=== PATIENT | female | born 1965 | race Caucasian/White ===

== ENCOUNTER 2024-04-27 07:26 | Emergency (ER) | payer BC ==
[2024-04-27] MEDS: Ketorolac 30 MG/ML SDV IM ONE (08:24)
[2024-04-27] MEDS: Cyclobenzaprine 10 MG Tab PO ONE (08:25)
== END 2024-04-27 09:59 | disposition home or self-care (01) ==
LOC: JP.ED 07:26
DX: M54.50 Low back pain, unspecified (principal); Z88.0 Allergy status to penicillin
CPT/HCPCS: 96372; 99283; A9270; J1885

== ENCOUNTER 2025-07-09 08:18 | Emergency (ER) | payer BC, MEDICAID ==
[2025-07-09 08:48] LABS: BASOPHILS ABSOLUTE AUTO 0.03 K/uL (0.00-0.10); BASOPHILS PERCENT AUTO 0.6 % (0.1-1.3); EOSINOPHILS ABSOLUTE AUTO 0.12 K/uL (0.00-0.40); EOSINOPHILS PERCENT AUTO 2.2 % (0.0-5.4); IMMATURE GRAN ABSOLUTE AUTO 0.01 K/uL (0.00-0.23); IMMATURE GRAN PERCENT AUTO 0.2 % (0.0-0.7); LYMPHOCYTES ABSOLUTE AUTO 1.10 K/uL (0.8-3.3); LYMPHOCYTES PERCENT AUTO 20.3 % (11.4-47.7); MONOCYTES ABSOLUTE AUTO 0.33 K/uL (0.20-0.90); MONOCYTES PERCENT AUTO 6.1 % (3.3-12.6); NEUTROPHILS ABSOLUTE AUTO 3.84 K/uL (1.0-7.6); NEUTROPHILS PERCENT AUTO 70.6 % (40.0-78.1); PLATELET COUNT,PLT 208 K/uL (130-375); RED BLOOD CELL COUNT 4.42 M/uL (3.77-5.24); WHITE BLOOD CELL COUNT,WBC 5.4 K/uL (3.2-11.0)
[2025-07-09 09:10] LABS: BLOOD UREA NITROGEN,BUN 16 mg/dL (7-18); CARBON DIOXIDE,CO2 28 mmol/L (21-32); CHLORIDE,CL 103 mmol/L (100-108); CREATININE 0.9 mg/dL (0.6-1.0); EST CRCL DRUG DOSING (CG) 53.37 mL/min; ESTIMATED GFR 72 mL/min (>60); GLUCOSE RANDOM 142 mg/dL (74-106); POTASSIUM,K 3.5 mmol/L (3.6-5.2); PROTEIN TOTAL,TP 7.4 g/dL (6.4-8.2); SODIUM,NA 140 mmol/L (140-148)
[2025-07-09 09:11] LABS: A/G RATIO 1.0 (1.2-2.2); ALANINE AMINOTRANSFERASE,ALT 23 U/L (12-78); ASPARTATE AMNIOTRANSFERASE,AST 23 U/L (15-37); BILIRUBIN TOTAL 0.8 mg/dL (0.2-1.0); TROPONIN I HIGH SENSITIVITY 6.1 pg/mL (<=60.3)
== END 2025-07-09 11:22 | disposition home or self-care (01) ==
LOC: JP.ED 08:18
DX: R07.89 Other chest pain (principal); Z88.0 Allergy status to penicillin; Z79.899 Other long term (current) drug therapy
CPT/HCPCS: 36415; 71045; 80053; 84484; 85025; 99285; A9270; 93010